=== PATIENT | male | born 1970 | race Two or more races ===

== ENCOUNTER 2018-11-23 19:56 | Inpatient (IN) | payer MEDICAID ==
[~2018-11-23] VITALS: Ht 165.1 cm; Wt 84.4 kg
[2018-11-23 20:00] VITALS: BP 120/80
--- NOTE | 2018-11-23 20:10 | NUR ---
COLLEGE SPORTS COACH NOTES ADMITTED A47 Y/0 A/OX4 MALE MACANESE SPEAKING , ADMITTED DIRECT FROM [facility] WITH ADMITTING DX OF DEAN, MACANESE SPEAKING , AMBULATORY . PTS IS UNDER MEDICAL SERVICE OF [facility] [place]. ORDERS NOTED AND CARRIED OUT ALL NEEDS ATTENDED TOO CALL LIGHT WITHIN REACH V/S STABLE AFEBRILE , NO SOB NO DISTRESS NOTED ,BODY CHECK DONE NOTED WITH LEFT EYEBROW ABRAISION, NO BLEEDING NOTED . ALL DUE MEDS GIVEN ORDERED,PTS ON R/A SATING 97% ON TELE STATUS SR AND OCCASIONAL PVC, WITH RIGHT AC AT 20 G INTACT AND PATENT , RIGHT HAND GAUGE 20 INTACT AND PATENT .WILL CONTINUE TO MONITOR PTS.PTS IS FULL CODE AND NKDA ,WITH IVF OF NS AT 75CC/HR INFUSING WELL .
[2018-11-23 20:21] VITALS: BP 120/80
[2018-11-23] MEDS ORDERED: ONDANSETRON HCL/PF 4 MG/2 ML VIAL IVP PRN (20:30)
[2018-11-23] MEDS ORDERED: ACETAMINOPHEN 325 MG TABLET PO PRN (20:30)
[2018-11-23] MEDS ORDERED: ZOLPIDEM TARTRATE 5 MG TABLET PO PRN (20:30)
[2018-11-23] MEDS ORDERED: Z GUARD REMEDY 2 OZ OINT TP PRN (20:30)
[2018-11-23] MEDS ORDERED: MAG HYDROX/AL HYDROX/SIMETH 30 ML UDC PO PRN (20:30)
[2018-11-23] MEDS ORDERED: HYDROCODONE/APAP 5/325MG 1 EACH TABLET PO PRN (20:30)
[2018-11-23] MEDS ORDERED: MAGNESIUM HYDROXIDE 30 ML UDC PO PRN (20:30)
[2018-11-23] MEDS: IV NS 0.9% 1,000 ML IV PRN (22:31)
[2018-11-24] VITALS (7 sets, daily range): BP systolic 95–120; BP diastolic 55–77
[2018-11-24] MEDS ORDERED: AZITHROMYCIN 500 MG VIAL ONE (00:50)
[2018-11-24] MEDS: AZITHROMYCIN 500 MG in IV D5W 250 ML IV SCH ×2 (01:11→21:16)
--- NOTE | 2018-11-24 07:38 | NUR ---
ELECTRO MECHANIC NOTE RECEIVED PATIENT ON RA , ALERT,ORIENTED X3, ON TELE MONITOR SR , ON IVF ORDERED , BED IN LOWEST AND LOCKED POSITION , NO C\O DISCOMFORT AT THIS TIME,ON RA ,NO SOB NOTED AT THIS TIME , CALL LIGHT WITHIN REACH , PLAN OF CARE DISCUSSED WITH PATIENT
[2018-11-24] MEDS ORDERED: OMEP20CA10 PO (07:49)
[2018-11-24] MEDS ORDERED: CLAR500T PO (07:49)
[2018-11-24] MEDS ORDERED: AMOX500C2 PO (07:49)
[2018-11-24] MEDS ORDERED: PRAV20TA4 PO (07:49)
[2018-11-24] MEDS ORDERED: FURO40TA5 PO (07:49)
[2018-11-24] MEDS ORDERED: ASPI-1169 PO (07:49)
[2018-11-24] MEDS ORDERED: METO25TA20 PO (07:49)
[2018-11-24] MEDS ORDERED: LISI-607 PO (07:49)
[2018-11-24 07:54] LABS: BASOPHILS % (AUTO) 0.2 % (0.0-2.0); EOSINOPHILS % (AUTO) 0.1 % (0.0-6.0); HEMATOCRIT 43 % (39-51); HEMOGLOBIN 14.2 g/dL (13.5-17.5); LYMPHOCYTES # (AUTO) 0.7 /CMM (0.8-4.8); LYMPHOCYTES % (AUTO) 7.4 % (20.0-44.0); MEAN CORPUSCULAR HGB CONC 33 g/dl (31.0-36.0); MEAN CORPUSCULAR VOLUME 84 fL (80-96); MONOCYTES # (AUTO) 0.2 /CMM (0.1-1.30); MONOCYTES % (AUTO) 2.8 % (2.0-12.0); NEUTROPHILS # (AUTO) 7.9 /CMM (1.8-8.9); NEUTROPHILS % (AUTO) 89.5 % (43.0-81.0); PLATELET COUNT (AUTO) 200 /CMM (150-450); RED BLOOD CELL COUNT(AUTO) 5.14 MIL/uL (4.5-6.0); WHITE BLOOD COUNT (AUTO) 8.8 K/uL (4.3-11.0)
[2018-11-24 08:09] LABS: CALCIUM, SERUM 8.4 mg/dL (8.5-10.1); CREATININE 0.8 mg/dL (0.6-1.3); MAGNESIUM 2.5 mg/dL (1.8-2.4); PHOSPHORUS 4.5 mg/dL (2.5-4.9); POTASSIUM 4.4 mmol/L (3.5-5.1)
[2018-11-24] MEDS ORDERED: PRAVASTATIN SODIUM 20 MG TABLET PO SCH (09:00)
[2018-11-24] MEDS ORDERED: OMEPRAZOLE 20 MG CAPSULE.DR PO SCH (09:00)
--- NOTE | 2018-11-24 09:00 | NUR ---
SEAFOOD CLERK NOTE ORTHOSTATIC BP DONE SUPPING BP 95/54 SITTING 103/77 STANDING 104/77 DR RODRIGUEZ NOTIFIED ALSO EKG DONE ORDERED
[2018-11-24] MEDS: ASPIRIN 81 MG TAB.CHEW PO SCH (09:11)
[2018-11-24] MEDS: FUROSEMIDE 40 MG TABLET PO SCH (09:12)
[2018-11-24] MEDS: METOPROLOL TARTRATE 25 MG TABLET PO SCH ×2 (09:12→16:13)
[2018-11-24] MEDS: LISINOPRIL (5MG) 5 MG TABLET PO SCH (09:13)
[2018-11-24] MEDS: PANTOPRAZOLE 40 MG TABLET.DR PO SCH (09:14)
--- NOTE | 2018-11-24 10:26 | NUR ---
STRIPPER OPAQUER NOTE CONSENT FOR CT ANGIO SIGNED BY PATIENT
[2018-11-24] MEDS ORDERED: CT SWABBABLE VALVE TRANS SET 1 EA INFUS.SET MC ONE (10:41)
--- NOTE | 2018-11-24 10:44 | NUR ---
LEOLA BEAVERS NOTE SEEN BY MART RUFFIN TO DO FLU VACCINE AND PNA VACCINE ALSO OK TO PLACE DVT PUMPS Addendum: 11/24/18 at 1103 by AMANDEEP CASAS RN OK TO DO PNA VACCINE UPON DISCHARGE PER MART BEAVERS NP
[2018-11-24] MEDS: IV NS 0.9% 1,000 ML IV PRN (11:47)
--- NOTE | 2018-11-24 12:00 | NUR ---
STEEL HANDLER NOTE PER MART RN CUSTOM GRINDER OK TO PLACE DVT PUMPS BUT NO CHEMICAL ANTICOAGULANT AT THIS TIME ,PATIENT AMBULATE WELL
--- NOTE | 2018-11-24 12:53 | NUR ---
manager telemarketing note keep npo for ct angio
--- NOTE | 2018-11-24 13:57 | NUR ---
television repairman note taken to ct angio as ordered
[2018-11-24] MEDS ORDERED: METOPROLOL TARTRATE INJ 5 MG/5 ML AMPUL IVP ONE (14:10)
[2018-11-24] MEDS ORDERED: IV NS 0.9% 500 ML IV ONE (14:10)
--- NOTE | 2018-11-24 14:10 | NUR ---
RN CTCA notes Patient is alert and oriented x 4, denies chest pain, not in any form of distress. Consent for Coronary CT angiography signed by the patient. Pre-procedure teachings given and he verbalized understanding. Will monitor patient per protocol.
[2018-11-24] MEDS ORDERED: METOPROLOL TARTRATE INJ 5 MG/5 ML AMPUL ONE (14:17)
--- NOTE | 2018-11-24 15:00 | NUR ---
Tele/RN - CTCA Patient tolerated CTCA well, no adverse reaction seen, denies chest pain, stable on room air, SR with PVCs on the monitor. After procedure instructions given to patient and he verbalized full understanding. Endorsed to primary RN accordingly.
[2018-11-24] MEDS ORDERED: NITROGLYCERIN 0.4 MG/TAB BOTTLE SL ONE (15:30)
--- NOTE | 2018-11-24 15:30 | NUR ---
MARKETING ASSOCIATE NOTE PATIENT ALERT ORIENTED, BACK ROM CTA , ABLE TO EAT WELL ,NOT IN ACUTE DISTRESS NO C\0 CHEST PAIN ,ON IVF, BOTH LEGS WITH DVT PUMPS, WILL CONT TO MONITOR CLOSELY, ATE WELL LUNCH ,ENCOURAGE TO DRINK FLUIDS, PATIENT HAD CTA
--- NOTE | 2018-11-24 18:27 | NUR ---
BOOM CRANE OPERATOR NOTE HAVING DINNER, ,ABLE TO EAT SELF ,NOT IN DISTRESS
[2018-11-24] MEDS: ATORVASTATIN 10 MG TABLET PO SCH (21:16)
[2018-11-25] VITALS: BP 104/81
[2018-11-25] MEDS: IV NS 0.9% 1,000 ML IV PRN (03:37)
[2018-11-25 04:00] VITALS: BP 100/67
--- NOTE | 2018-11-25 06:50 | NUR ---
HOME SALES SERVICE PROFESSIONAL NOTES AWAKE & RESPONSIVE. NOT IN ANY DISTRESS. NO SOB NOTED. DENIES ANY PAIN OR DISCOMFORT AT THIS TIME. ON TELE SR @ 70 WITH BBB WITH IVF INFUSING WELL. MONITORED ACCORDINGLY. CALL LIGHT WITHIN REACH. BED IN LOWEST POSITION. SR UP X 2 FOR SAFETY. WILL ENDORSE TO NEXT SHIFT.
--- NOTE | 2018-11-25 07:30 | NUR ---
INITIAL AWAKE & RESPONSIVE ALERT X 4. NO DISTRESS NOTED. NO SOB NOTED EITHER. DENIES ANY PAIN OR DISCOMFORT AT THIS TIME. ON TELE SR WITH IVF INFUSING NORMAL SALINE AT 75 ML/HR WELL. MONITORED ACCORDINGLY. CALL LIGHT WITHIN REACH. BED IN LOWEST POSITION. SR UP X 2 FOR SAFETY. WILL CONTINUE TO MONITOR.
[2018-11-25] MEDS: PANTOPRAZOLE 40 MG TABLET.DR PO SCH (07:37)
[2018-11-25 08:00] VITALS: BP 108/85
[2018-11-25] MEDS: ASPIRIN 81 MG TAB.CHEW PO SCH (09:14)
[2018-11-25] MEDS: METOPROLOL TARTRATE 25 MG TABLET PO SCH ×2 (09:15→17:07)
[2018-11-25] MEDS: FUROSEMIDE 40 MG TABLET PO SCH (09:15)
[2018-11-25] MEDS: LISINOPRIL (5MG) 5 MG TABLET PO SCH (09:16)
[2018-11-25 12:00] VITALS: BP 106/83
[2018-11-25 16:00] VITALS: BP 107/75
--- NOTE | 2018-11-25 18:04 | NUR ---
CLOSING PT NEEDS MEET PIV LINES CHANGED TO H/L PT KEEP SAFE HAD 2 d ECHO TODAY WILL ENDORSE TO NEXT SHIFT RN.
--- NOTE | 2018-11-25 19:25 | NUR ---
MS RN RECEIVE PT IN BED. A/O X3. RESPIRATIONS EVEN AND UNLABORED, NO SOB NOTED, NO DISTRESS, SAFETY MEASURES IN PLACE. WILL CONTINUE TO MONITOR.
[2018-11-25 20:00] VITALS: BP 112/85
[2018-11-25] MEDS ORDERED: AZITHROMYCIN 250 MG TABLET PO SCH (21:00)
[2018-11-25] MEDS: ATORVASTATIN 10 MG TABLET PO SCH (21:25)
[2018-11-26 04:00] VITALS: BP 107/79
--- NOTE | 2018-11-26 06:15 | NUR ---
RN CLOSING NOTE ASLEEP AND EASILY AWAKEN. NOT IN DISTRESS, STABLE. AM CARE PROVIDED. NEEDS ATTENDED AND ANTICIPATED, KEPT CLEAN AND DRY AND COMFORT. NURSING CARE RENDERED, SAFETY MEASURES IN PLACE, BED IN LOW LOCKED POSITION, CALL LIGHT WITHIN EASY REACH. ENDORSE TO NEXT SHIFT CONTINUITY OF CARE.
--- NOTE | 2018-11-26 07:10 | NUR ---
RN OPENING NOTES PT AWAKE AND RESTING IN BED. PT COMPLAINS OF ABDOMINAL PAIN, INFORMED PT OF PRN PAIN MEDICATIONS AVAILABLE TO HIM. AT THIS TIME PT STATED WILL LET NURSE KNOW WHEN PAIN MEDICATION NEEDED. WILL FOLLOW UP. PT HAS RIGHT AC #20 INTACT AND RIGHT FOREARM #18 INTACT AND PATENT. CASE MANAGEMENT WILL FOLLOW UP WITH PLACEMENT OF PACEMAKER. SAFETY PRECAUTIONS IN PLACE, BED IN LOWEST LOCKED POSITION, X2 SIDE RAILS UP AND CALL LIGHT WITHIN REACH. WILL CONTINUE TO MONITOR.
[2018-11-26 08:00] VITALS: BP 111/76
[2018-11-26] MEDS: PANTOPRAZOLE 40 MG TABLET.DR PO SCH (08:15)
[2018-11-26] MEDS: FUROSEMIDE 40 MG TABLET PO SCH (08:15)
[2018-11-26] MEDS: ASPIRIN 81 MG TAB.CHEW PO SCH (08:15)
[2018-11-26] MEDS: METOPROLOL TARTRATE 25 MG TABLET PO SCH (08:16)
[2018-11-26] MEDS: LISINOPRIL (5MG) 5 MG TABLET PO SCH (08:17)
--- NOTE | 2018-11-26 09:04 | NUR ---
RN NOTES PT NOW TELE MONITORING NSR WITH PVS AT RATE OF 80
[2018-11-26 12:00] VITALS: BP 100/74
--- NOTE | 2018-11-26 13:30 | NUR ---
RN NOTES PT STABLE AT DISCHARGE. MART MCNAIR EXPLAINED TO THE PATIENT WITH THE HELP OF TRUCK SPOTTER THE IMPORTANCE OF THE PATIENT FOLLOWING UP WITH A RESEARCH CHEMICAL ENGINEER. PATIENT VERBALLY ACKNOWLEDGED UNDERSTANDING. PT WILL NEED TO HAVE DEFIBRILLATOR. ALL PATIENT BELONGINGS ACCOUNTED FOR AND TAKEN HOME WITH PATIENT AT DISCHARGE. PHOTOGRAPHS TAKEN AT DISCHARGE. ALL DISCHARGE PAPERWORK EXPLAINED, PATIENT VERBALLY ACKNOWLEDGED UNDERSTANDING. ALL PAPERWORK SIGNED, COPIED AND GIVEN TO THE PATIENT. PT ACCOMPANIED BY ENGINE DYNAMOMETER TESTER AND OFF OF THE UNIT AT 1330 VIA WHEELCHAIR.
== END 2018-11-26 13:30 | disposition home or self-care (01) | DRG 139 ==
LOC: TELE1 19:56 → MEDSG1 11-25 08:50 → TELE1 11-26 08:29
PROVIDERS: ADMIT Nurse Practitioner Acute Care; ATTEND Nurse Practitioner Acute Care
DX: J15.9 Unspecified bacterial pneumonia (principal); I50.23 Acute on chronic systolic (congestive) heart failure; I42.9 Cardiomyopathy, unspecified; I27.20 Pulmonary hypertension, unspecified; E86.0 Dehydration; Z95.1 Presence of aortocoronary bypass graft; I25.10 Atherosclerotic heart disease of native coronary artery without angina pectoris; E66.9 Obesity, unspecified; Z68.30 Body mass index [BMI] 30.0-30.9, adult; R07.81 Pleurodynia
CPT/HCPCS: 36415; 71045-TC; 71100-TC; 75574; 80048-TC; 80061-TC; 83735-TC; 84100-TC; 84484-TC; 85025-TC; 87081-TC; 93307-TC; G0378; J0456; J3490; J7030; J7060; Q2036